=== PATIENT | female | born 1985 | race Caucasian/White ===

== ENCOUNTER 2024-03-26 05:08 | Emergency (ER) | payer MEDICAID, SELFPAY ==
[2024-03-26 05:12] VITALS: BP 132/96
[2024-03-26 05:16] VITALS: BMI 22.9
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
[2024-03-26 07:07] LABS: Amphetamines Positive (Negative); Barbiturates Negative (Negative); Benzodiazepines Negative (Negative); Buprenorphine Negative (Negative); Cocaine Negative (Negative); Marijuana Negative (Negative); Methadone Negative (Negative); Methamphetamines Negative (Negative); Opiates Negative (Negative); Phencyclidine Negative (Negative); Tricyclic Antidepressants Negative (Negative)
[2024-03-26 07:09] VITALS: BP 145/81
--- NOTE | 2024-03-26 07:28 | EDRN ---
this RN called crisis for an update on the pts status and crisis stated that Dr. Fortune upheld the 302, crisis also stated that tele psych has not yet seen the pt, will follow up with crisis at a later time
[2024-03-26 07:31] LABS: Fentanyl, Urine Negative (Negative)
--- NOTE | 2024-03-26 07:55 | EDRN ---
crisis called this RN and stated that the pt is speaking with telepsych now, per the psychiatrist a urine HCG was added on, per telepsych there is a high possibility that they are going to recommend in patient and uphold the 302, crisis will call
this RN back when it is confirmed
[2024-03-26 08:13] LABS: HCG, Urine Qualitative Screen Negative
--- NOTE | 2024-03-26 08:35 | EDRN ---
crisis called this RN to speak to the pt, this RN entered the crisis area and the pt was standing outside of her room, the pt stated to this RN, 'I just want to go home, I don't want any problems I just want to go home to my son', this RN called
crisis for an update however there was no decision made by the psychiatrist yet, this RN notified the pt of that, the pt asked for something else to eat, this RN ordered the pt a bagel with cream cheese per the pts request, no s/s of distress, the
pt became anxious and started to cry, this RN was able to calm the pt down by talking the pt through deep breathing, the pt is now sitting in bed in the lowest position, side rails up, HOB elevated, no s/s of distress, will continue to monitor the
pt closely
[2024-03-26] MEDS: ATIVAN 2 MG IM (09:33)
[2024-03-26 09:44] VITALS: BP 141/76
--- NOTE | 2024-03-26 10:16 | W.PN.UPDATE ---
Update Note
Progress Note Update
Psychiatric evaluation dictated.
Patient is now in 4 point soft restraints after she started throwing items including her phone and needed prn Ativan. She is still agitated presently and keeps pulling at her restraints. She admits that she has BD but reports she has been taking her
meds which include Depakote 825 daily as well as Seroquel 50 daily. Not clear when her Depakote level was done last.
Additionally she is on Adderall 60 mg daily for allegedly having ADHD.
Not acutely psychotic, denies hopelessness or suicidal thoughts. However is still very impulsive and quite unpredictable.
At this point she does present a danger to others based on her psychiatric illness.
Will measure Depakote level, restart Depakote ER 750 hs as well as Seroquel 25 mg bid as well as 50 mg prn for agitation.
Bed search in progress
[2024-03-26 10:24] VITALS: BP 116/77
--- NOTE | 2024-03-26 10:24 | EDRN ---
this RN entered the pts room and the pt was found sleeping in the bed, this RN woke the pt up verbally and the pt was responsive to voice, the pt was agreeable to allowing this RN to obtain vital signs, VS WNL, no s/s of distress, the pt resting in
bed in the lowest position, side rails up, HOB elevated, the pt continues to apologize this RN and states, 'That wasn't me, i am so sorry, i am not usually like that i am just frustrated', this RN notified the pt that if the pt remains calm and
cooperative with no signs of aggression that this RN will removed left wrist and right ankle violent restraints, one to one safety observation maintained, two mental health security specialists outside of the pts room, will continue to monitor the
pt closely
[2024-03-26 11:19] LABS: Depakane 35.1 ug/ml (50.0-120.0)
--- NOTE | 2024-03-26 13:02 | EDRN ---
crisis called this RN and updated this RN that the pt will be picked up and taken to [facility] at 1300, VS WNL, no s/s of distress, the pt is calm, pleasant, and cooperative
[2024-03-26 13:27] VITALS: BP 127/95
== END 2024-03-26 13:28 ==
LOC: EMR 05:08
PROVIDERS: Psychiatry & Neurology Psychiatry; EMERGENCY PHYSICIAN Student in an Organized Health Care Education/Training Program
DX: F31.9 Bipolar disorder, unspecified (principal); Z91.148 Patient's other noncompliance with medication regimen for other reason; Z79.3 Long term (current) use of hormonal contraceptives
CPT/HCPCS: 96372; 99285; 80164; 80306; 80307; 81025